=== PATIENT | female | born 1960 | race Caucasian/White ===

== ENCOUNTER 2019-03-28 08:10 | Day surgery (SDC) | payer OTHER ==
[~2019-03-28] VITALS: Ht 160 cm; Wt 81.8 kg
[~2019-03-28 08:10] MED LIST: ASPI81CH PO; LEVSOD100 PO; LISI5 PO; METF500 PO; MULVITMIND PO; SIMV10 PO
[2019-03-28] MEDS ORDERED: LEVSOD125 PO (09:49)
[2019-03-28] MEDS ORDERED: LOSA25 PO (09:52)
--- NOTE | 2019-03-28 10:42 | NUR ---
03/28/19 1042 Charis Beasley History, Chart, Medications and Allergies reviewed before start of procedure.PATIENT DETERMINED TO BE ASA APPROPRIATE FOR PROPOFOL SEDATION PRIOR TO START OF PROCEDURE BY .MONITOR INTACT WITH CONTINUOUS PULSE OXIMETRY AND INTERMITTENT BP.3-LEAD EKG REVIEWED WITH PHYSICIAN PRIOR TO START OF PROCEDURE.O2 VIA N/C INTACT THROUGHOUT SEDATION/PROCEDURE.
--- NOTE | 2019-03-28 11:59 | NUR ---
1130- TOLERATING COFFEE WELL, NO C/O. AT BEDSIDE. Discharge instructions reviewed with patient. Patient verbalizes understanding. Copy given to patient to take home. Discharged via wheelchair to private car for ride home.
== END 2019-03-28 11:30 | disposition home or self-care (01) ==
LOC: ORSCMMR 08:10 → ORD 10:00 → ORSCMMR 11:30
PROVIDERS: Internal Medicine Gastroenterology
PROC: 0DBN8ZX Excision of Sigmoid Colon, Via Natural or Artificial Opening Endoscopic, Diagnostic (ICD-10-PCS; principal; 2019-03-28 10:00)
DX: Z12.11 Encounter for screening for malignant neoplasm of colon (principal); Z86.010 Personal history of colon polyps; K63.5 Polyp of colon; K57.30 Diverticulosis of large intestine without perforation or abscess without bleeding; E11.9 Type 2 diabetes mellitus without complications; E78.00 Pure hypercholesterolemia, unspecified; E03.9 Hypothyroidism, unspecified; J44.9 Chronic obstructive pulmonary disease, unspecified; F17.210 Nicotine dependence, cigarettes, uncomplicated; Z79.899 Other long term (current) drug therapy; Z79.82 Long term (current) use of aspirin
CPT/HCPCS: 82947; 88305; J2704; J3010; J7120

== ENCOUNTER 2019-06-14 06:07 | Day surgery (SDC) | payer OTHER ==
[~2019-06-14] VITALS: Ht 160 cm; Wt 82.6 kg
[~2019-06-14 06:07] MED LIST changes: +LEVSOD125 PO; +LOSA25 PO
--- NOTE | 2019-06-14 07:09 | NUR ---
06/14/19 0709 Daja Ken CALL LIGHT WITHIN REACH.
== END 2019-06-14 08:36 | disposition home or self-care (01) ==
LOC: ORSCSDS 06:07
PROVIDERS: Orthopaedic Surgery
PROC: 01N50ZZ Release Median Nerve, Open Approach (ICD-10-PCS; principal; 2019-06-14 07:30)
DX: G56.01 Carpal tunnel syndrome, right upper limb (principal); E03.9 Hypothyroidism, unspecified; E11.9 Type 2 diabetes mellitus without complications; Z79.82 Long term (current) use of aspirin; Z79.899 Other long term (current) drug therapy; Z79.84 Long term (current) use of oral hypoglycemic drugs; Z87.891 Personal history of nicotine dependence
CPT/HCPCS: 82947; J1885; J2405; J2704; J3010; J7120

== ENCOUNTER → 2020-05-24 | Outpatient (CLI) | payer OTHER ==
[2020-05-26 12:15] LABS: HPV 16 Negative (Negative); HPV 18 Negative (Negative); HPV OTHER HR TYPES Negative (Negative)
== END | disposition home or self-care (01) ==
LOC: LAB 13:30 → LAB SHORT 13:30
PROVIDERS: Nurse Practitioner Family
DX: Z11.51 Encounter for screening for human papillomavirus (HPV) (principal); Z12.4 Encounter for screening for malignant neoplasm of cervix
CPT/HCPCS: 87624; G0123